=== PATIENT | female | born 1975 | race Caucasian/White ===

== ENCOUNTER 2024-07-02 15:53 | Emergency (ER) | payer OTHER ==
[~2024-07-02] VITALS: Ht 172.7 cm; Wt 65.3 kg
--- NOTE | 2024-07-02 16:22 | ERN ---
General Chief Complaint: Post-Op Problem Stated Complaint: ANEMIA, LOW H/H Time Seen by MD: 15:54 Source: patient History of Present Illness Initial Comments Patient is a 48-year-old female coming in to be evaluated for low hemoglobin. Patient states he recently had a tummy tuck and was being seen today in [facility] by surgeon. Per surgeon's recommendation patient was to follow up hospital for blood transfusion. Allergies: Coded Allergies: No Known Allergies (Unverified Allergy, Unknown, 07/02/24) Past Medical History Past Medical History: Hypertension Past Surgical History: BTL Surgical History Other: TOE NAILS REMOVED, JAW SX ROS Dictation CONSTITUTIONAL: No chills, no fever, weakness, no diaphoresis, malaise. HEAD/FACE: No signs of trauma. EENT: No eye pain, no blurred vision, no tearing, no double vision, no ear pain, no ear discharge, no nose pain, no nasal congestion, no throat pain, no throat swelling, no mouth pain. RESPIRATORY: No cough, no orthopnea, no SOB, no stridor, no wheezing. CARDIOVASCULAR: No chest pain, no edema, no palpitations, no syncope. GASTROINTESTINAL/ABDOMINAL: No abdominal pain, no constipation, no diarrhea, no nausea, no vomiting. GENITOURINARY: No abnormal discharge, no dysuria, no frequent urination, no hematuria. No complaints of pain in the genitals. MUSCULOSKELETAL: No back pain, no gout, no joint pain, no joint swelling, no muscle pain, no muscle stiffness, no neck pain. INTEGUMENTARY: No change in color, no change in hair/nails, no dryness, no lesion, no lumps, no rash. NEUROLOGICAL/PSYCH: No anxiety, not depressed, no emotional problem, no headache, no numbness, no pre-existing deficit, no history of seizures, no tremors, no weakness. HEMATOLOGIC/LYMPHATIC: Not anemic, no history of blood clots, no apparent bleeding, no bruising, glands not swollen. All Systems Negative, Except as Noted. Physical Exam Physical Exam Dictation VITAL SIGNS: Reviewed. GENERAL APPEARANCE: Alert, oriented x3, no acute distress, obese. HEAD AND FACE: Non-traumatic. EYES: PERRL, pink conjunctivas, eyelid no trauma, anterior chamber clear. EARS: Pinnas intact and no signs of trauma or erythema. Ear canals clear and no discharge. TMs no erythema. NOSE: No discharge, no bleeding. OROPHARYNX: Mouth normal, teeth no caries, tongue pink. Pharynx clear, no erythema. Tonsils no exudates, no abscesses noted. Mucous membrane moist. NECK: Supple, non-tender, no thyromegaly, no masses, no JVD, no bruits. BREAST: Deferred. CHEST: No tenderness, no crepitus, no paradoxical movement, no retractions. LUNGS: Clear, well-ventilated, symmetric, no rales, no wheezing, no rhonchi, no stridor, good breath sounds bilaterally. HEART: Regular rate, regular rhythm, no murmur, no gallops. VASCULAR: No peripheral edema. ABDOMEN: Soft, positive bowel sounds, nondistended, no guarding, nontender, no rebound, no masses no hepatomegaly, no splenomegaly, no Jose's sign, no hernias. RECTAL: Deferred. GENITAL: Deferred. NEUROLOGICAL: Normal speech, gross motor function intact, gross sensory function intact. MUSCULOSKELETAL: Neck nontender, full range of motion, back nontender, full range of motion. EXTREMITIES: Nontender, full range of motion. SKIN: Color pink, dry, no turgor, no rash, no lacerations, no abrasions, no contusions. LYMPHATICS: Deferred. Results Laboratory and Microbiology Lab and Micro Result Laboratory Tests Test 07/02/24 16:24 White Blood Count 10.1 K/uL (4.8-10.8) Red Blood Count 2.64 MIL/uL (4.00-5.50) L Hemoglobin 8.1 g/dL (12.0-16.0) L Hematocrit 23.8 % (36-48) L Mean Corpuscular Volume 90.2 fL (79-99) Mean Corpuscular Hemoglobin 30.7 pg (27.0-33.0) Mean Corpuscular Hemoglobin Concent 34.0 g/dL (32.0-36.0) Red Cell Distribution Width 13.0 % (11.0-15.5) Platelet Count 210 K/uL (130-400) Mean Platelet Volume 9.8 fL (7.5-10.5) Immature Granulocyte % (Auto) 1.3 % (0-1) H Neutrophils (%) (Auto) 58.4 % (40.0-77.0) Lymphocytes (%) (Auto) 32.0 % (21.0-51.0) Monocytes (%) (Auto) 7.5 % (3.0-13.0) Eosinophils (%) (Auto) 0.5 % (0.0-8.0) Basophils (%) (Auto) 0.3 % (0.0-5.0) Neutrophils # (Auto) 5.9 K/uL (1.8-7.7) Lymphocytes # (Auto) 3.2 K/uL (1.0-4.8) Monocytes # (Auto) 0.8 K/uL (0.1-1.0) Eosinophils # (Auto) 0.05 K/uL (0.00-0.70) Basophils # (Auto) 0.03 K/uL (0.00-0.20) Absolute Immature Granulocyte (auto 0.13 K/uL (0-1) Nucleated Red Blood Cells 0.2 % (0.0-0.19) H Sodium Level 138 mmol/L (136-145) Potassium Level 3.4 mmol/L (3.5-5.1) L Chloride Level 103 mmol/L (101-111) Carbon Dioxide Level 28 mmol/L (21-32) Blood Urea Nitrogen 17 mg/dL (7-18) Creatinine 1.0 mg/dL (0.5-1.0) Glomerular Filtration Rate Calc 69 mL/min (>90) Random Glucose 100 mg/dL (70-105) Total Calcium 10.2 mg/dL (8.5-10.1) H Labs Reviewed?: Yes MDM MDM: Differential diagnosis: Anemia, acute blood loss, status post surgery, Patient is a 48-year-old female coming in to be evaluated for abnormal labs. Patient was seen by his surgeon who performed a tummy tuck and was advised appropriate follow up with nearest ER for blood transfusion if needed. Hemoglobin is currently 8.1 patient will be discharged in stable condition with a diagnosis of status post surgery and anemia. ED Course Orders Procedure Category Date Status Time Cbc With Differential LAB 07/02/24 Complete 16:07 Basic Metabolic Panel LAB 07/02/24 Complete 16:07 Type And Screen BBK 07/02/24 In Process 16:07 Vital Signs Date Time Temp Pulse Resp B/P (MAP) Pulse Ox O2 Delivery O2 Flow Rate FiO2 07/02/24 15:55 99.1 94 18 138/89 99 Room Air 0 DX & DISP Disposition: Discharge Departure Impression: Primary Impression: Status post surgery Additional Impression: Anemia Condition: Stable Scripts Docusate Sodium (Colace) 100 Mg Capsule 1 CAP PO BID PRN for constipation for 10 Days, #20 CAP 0 Refills Prov: DEANNE DURAND MD 07/02/24 Ferrous Sulfate (Ferrous Sulfate) 324 Mg (65 Mg Iron) Tablet.dr 1 TAB PO DAILY for 30 Days, #30 TAB 0 Refills Prov: DEANNE DURAND MD 07/02/24 Additional Instructions: FOLLOW-UP WITH PRIMARY CARE PROVIDER IN 1 TO 2 DAYS. TAKE MEDICATIONS DIRECTED HERE IN THE EMERGENCY ROOM. OKAY TO CONTINUE HOME MEDICATIONS UNLESS OTHERWISE DISCUSSED DURING YOUR VISIT IN THE EMERGENCY ROOM TODAY. RETURN TO YOUR NEAREST EMERGENCY ROOM IF SYMPTOMS WORSEN OR IF THERE IS NO IMPROVEMENT. CALL 911 IF YOU NEED IMMEDIATE ASSISTANCE. TAKE TYLENOL [id number] NEEDED AND IF NO CONTRAINDICATIONS ARE PRESENT. INCREASE ORAL HYDRATION. A WOUND CULTURE OR URINE CULTURE WAS ORDERED HERE IN THE EMERGENCY ROOM DEPARTMENT PLEASE FOLLOW-UP WITH PRIMARY CARE PROVIDER AND ADVISE THEM TO GET REPEAT PORTS FROM OUR FACILITY. IF YOU HAD ANY PAULIE WRAP/SPLINTS THAT WERE APPLIED HERE, PLEASE DO NOT REMOVE THEM UNTIL YOU SEE YOUR PRIMARY CARE OR SPECIALTY. Referrals: Referrals: CARLOS HIGUERA MD Time of Disposition: 16:58 DEANNE DURAND MD Jul 02, 2024 16:22
[2024-07-02 16:33] LABS: BASOPHILS # (AUTO) 0.03 K/uL (0.00-0.20); BASOPHILS % (AUTO) 0.3 % (0.0-5.0); EOSINOPHILS # (AUTO) 0.05 K/uL (0.00-0.70); EOSINOPHILS % (AUTO) 0.5 % (0.0-8.0); HEMATOCRIT 23.8 % (36-48); IMMATURE GRANULOCYTE ABSOLUTE 0.13 K/uL (0-1); LYMPHOCYTES # (AUTO) 3.2 K/uL (1.0-4.8); MEAN CORPUSCULAR HEMOGLOBIN 30.7 pg (27.0-33.0); MEAN CORPUSCULAR VOLUME 90.2 fL (79-99); MONOCYTES # (AUTO) 0.8 K/uL (0.1-1.0); MONOCYTES % (AUTO) 7.5 % (3.0-13.0); NEUTROPHILS # (AUTO) 5.9 K/uL (1.8-7.7); NEUTROPHILS % (AUTO) 58.4 % (40.0-77.0); NUCLEATED RED BLOOD CELLS 0.2 % (0.0-0.19); PLATELET COUNT (AUTO) 210 K/uL (130-400); RED BLOOD CELL COUNT(AUTO) 2.64 MIL/uL (4.00-5.50); WHITE BLOOD COUNT (AUTO) 10.1 K/uL (4.8-10.8)
[2024-07-02 16:41] LABS: POTASSIUM 3.4 mmol/L (3.5-5.1)
[2024-07-02] MEDS ORDERED: FERR324T4 PO (16:59)
[2024-07-02] MEDS ORDERED: DOCU-116 PO (16:59)
--- NOTE | 2024-07-02 17:00 | NUR ---
PT STATES SHE HAD A TUMMY TUCK IN [place] AND WAS TOLD BY THAT HER HGB WAS LOW AND NEEDED A BLOOD TRANSFUSION.
[2024-07-02 18:07] VITALS: BP 133/75; PULSE 85; RESP 20; TEMP 98.7; O2SAT 99
== END 2024-07-02 18:08 | disposition home or self-care (01) ==
LOC: EDH 15:53
DX: D64.9 Anemia, unspecified (principal); I10 Essential (primary) hypertension; Z98.51 Tubal ligation status
CPT/HCPCS: 36415; 80048; 85025; 86850; 86900; 86901; 99283